=== PATIENT | female | born 1990 | race Caucasian/White ===

== ENCOUNTER 2022-01-01 08:25 | Inpatient (IN) | payer OTHER ==
[2022-01-01] MEDS ORDERED: DINOPROSTONE 10 MG VAGINAL SUPPOSITORY VG STA (09:16)
[2022-01-01 10:57] LABS: BASO % 0.3 % (0-2.0); EOS % 1.4 % (0-4.5); HEMATOCRIT 33.5 % (32.4-45.2); HEMOGLOBIN 11.3 GM/dL (10.7-15.3); LYMPH % 24.2 % (8-40); MCH 28.5 pg (25.7-33.7); MCHC 33.7 g/dl (32.0-36.0); MEAN CELL VOLUME 84.7 fl (80-96); MEAN PLT VOLUME 9.9 fl (7.5-11.1); MONO % 8.1 % (3.8-10.2); PLATELET COUNT 160 10^3/uL (134-434); RBC 3.96 M/mm3 (3.60-5.2); WHITE BLOOD COUNT 5.5 K/mm3 (4.0-10.0)
[2022-01-01 11:01] LABS: INR 0.85 (0.83-1.09); PROTHROMBIN TIME (PATIENT) 9.8 SEC (9.7-13.0)
[2022-01-01 11:04] LABS: ACTIVATED PTT 25.9 SECONDS (25.2-36.5)
[2022-01-01 11:25] LABS: CALCIUM 8.3 mg/dL (8.5-10.1)
[2022-01-01 11:26] LABS: BLOOD UREA NITROGEN 7.7 mg/dL (7-18)
[2022-01-01 11:29] LABS: CREATININE 0.3 mg/dL (0.55-1.3)
[2022-01-01 13:09] VITALS: BMI 35.9
[2022-01-01] MEDS ORDERED: OXYTOCIN 30 UNITS in 0.9% NS 30 UNIT/500 ML INFUS.BAG IVPB SCH (22:45)
[2022-01-02] MEDS ORDERED: LIDOCAINE HCL 1% PRESERVATIVE FREE - 30ML VIAL ONE (00:15)
[2022-01-02] MEDS ORDERED: OXYTOCIN 30 UNITS in 0.9% NS 30 UNIT/500 ML INFUS.BAG IVPB ONE (00:15)
[2022-01-02] MEDS ORDERED: OXYTOCIN 20 UNITS in 0.9% NS 20 UNIT/1,000 ML INFUS.BAG IV ONE (00:15)
[2022-01-02] MEDS: ELECTROLYTE-148 SOLN 1,000 ML IV SCH ×2 (00:33→09:15)
[2022-01-02] MEDS ORDERED: PROMETHAZINE HCL 25 MG/1 ML VIAL IVPB ONE (05:31)
[2022-01-02] MEDS ORDERED: BUTORPHANOL TARTRATE 1 MG/ML VIAL IVPB ONE (05:31)
[2022-01-02] MEDS ORDERED: BUTORPHANOL TARTRATE 2 MG/ML VIAL ONE (05:34)
[2022-01-02] MEDS ORDERED: oxyCODONE HCL 5 MG TABLET PO PRN (09:37)
[2022-01-02] MEDS ORDERED: IBUPROFEN 600 MG TABLET (FP) PO PRN (09:37)
[2022-01-02] MEDS ORDERED: BENZOCAINE 28 GM HEMORRHOIDAL OINTMENT TP PRN (09:37)
[2022-01-02] MEDS ORDERED: ACETAMINOPHEN 325 MG TABLET (FP) PO PRN (09:37)
[2022-01-02] MEDS ORDERED: BENZOCAINE 20% 57 GM BOTTLE TP PRN (09:37)
[2022-01-02] MEDS ORDERED: BISACODYL 10 MG SUPP.RECT RC PRN (09:37)
[2022-01-02] MEDS ORDERED: WITCH HAZEL 50% (TUCKS) 40 PAD/JAR PAD TP PRN (09:37)
[2022-01-02] MEDS ORDERED: METHYLERGONOVINE MALEATE 0.2 MG/1 ML AMP IM PRN (09:37)
[2022-01-02] MEDS ORDERED: OXYTOCIN 20 UNITS in 0.9% NS 20 UNIT/1,000 ML INFUS.BAG IV SCH (09:45)
[2022-01-02 10:00] LABS: CORD BASE EXCESS -2.6 mmol/L (0-2); CORD HCO3 25.5 mmHg (20-29); CORD PCO2 56.8 mmHg (30-78); CORD pH 7.27 (7.14-7.44)
[2022-01-02 10:02] LABS: CORD HCO3 23.5 mmHg (20-29); CORD PCO2 46.7 mmHg (30-78); CORD pH 7.32 (7.14-7.44)
[2022-01-03 09:51] LABS: BASO % 0.2 % (0-2.0); EOS % 0.6 % (0-4.5); HEMATOCRIT 33.5 % (32.4-45.2); HEMOGLOBIN 11.4 GM/dL (10.7-15.3); LYMPH % 17.3 % (8-40); MCH 29.1 pg (25.7-33.7); MCHC 34.1 g/dl (32.0-36.0); MEAN CELL VOLUME 85.5 fl (80-96); MEAN PLT VOLUME 10.3 fl (7.5-11.1); MONO % 6.5 % (3.8-10.2); NEUT % 75.4 % (42.8-82.8); PLATELET COUNT 149 10^3/uL (134-434); RBC 3.92 M/mm3 (3.60-5.2); RDW 14.3 % (11.6-15.6); WHITE BLOOD COUNT 9.3 K/mm3 (4.0-10.0)
[2022-01-03] MEDS ORDERED: DIPHTH,PERTUSS(ACELL),TET 0.5 ML DISP.SYRIN IM ONE (10:00)
[2022-01-03 20:57] VITALS: TEMP 98.2
[2022-01-03] MEDS ORDERED: SENNOSIDES/DOCUSATE COMBO (SENNA PLUS) TABLET (UD) PO PRN (22:00)
[2022-01-04 09:53] VITALS: BP 110/70; PULSE 83; RESP 17
== END 2022-01-04 13:00 | disposition home or self-care (01) | DRG 560 ==
LOC: JLDR 08:25 → J3W 01-02 11:40
PROVIDERS: ADMIT Obstetrics & Gynecology; ATTEND Obstetrics & Gynecology
PROC: 3E033VJ Introduction of Other Hormone into Peripheral Vein, Percutaneous Approach (ICD-10-PCS; 2022-01-01)
PROC: 3E0P7VZ Introduction of Hormone into Female Reproductive, Via Natural or Artificial Opening (ICD-10-PCS; 2022-01-01)
PROC: 0HQ9XZZ Repair Perineum Skin, External Approach (ICD-10-PCS; principal; 2022-01-02)
PROC: 10E0XZZ Delivery of Products of Conception, External Approach (ICD-10-PCS; 2022-01-02)
DX: O69.1XX0 Labor and delivery complicated by cord around neck, with compression, not applicable or unspecified (principal); O70.0 First degree perineal laceration during delivery; Z3A.40 40 weeks gestation of pregnancy; Z37.0 Single live birth
CPT/HCPCS: 36415; 36600; 59409; 71046-TC-FY; 80048; 82803; 85025; 85610; 85730; 86780; 86850; 86900; 86901; 90715; C9803-CS; U0003; U0005

== ENCOUNTER 2024-04-21 17:04 | Emergency (ER) | payer OTHER ==
[2024-04-21 17:19] VITALS: RESP 18; BMI 26.5
[2024-04-21] MEDS ORDERED: ACETAMINOPHEN INJECTION 100 ML ONE (18:37)
[2024-04-21] MEDS ORDERED: METOCLOPRAMIDE HCL INJECTION 10 MG/2 ML VIAL ONE (18:37)
[2024-04-21 18:48] LABS: BASO % 0.7 % (0-2.0); EOS % 1.9 % (0-4.5); HEMATOCRIT 40.8 % (32.4-45.2); HEMOGLOBIN 13.7 GM/dL (10.7-15.3); LYMPH % 26.2 % (8-40); MCHC 33.6 g/dl (32.0-36.0); MEAN CELL VOLUME 86.1 fl (80-96); MEAN PLT VOLUME 9.8 fl (7.5-11.1); MONO % 8.2 % (3.8-10.2); PLATELET COUNT 212 10^3/uL (134-434); RBC 4.74 M/mm3 (3.60-5.2); RDW 13.7 % (11.6-15.6); WHITE BLOOD COUNT 5.9 K/mm3 (4.0-10.0)
[2024-04-21] MEDS: METOCLOPRAMIDE HCL INJECTION 10 MG/2 ML VIAL IVPB ONE (18:48)
[2024-04-21] MEDS: ACETAMINOPHEN 1000 MG/100 ML BAG IVPB ONE (18:48)
[2024-04-21] MEDS: SODIUM CHLORIDE 0.9% 500 ML INFUS.BAG IV ONE (18:48)
[2024-04-21 19:03] LABS: ALBUMIN 3.7 g/dl (3.4-5.0); CALCIUM 9.1 mg/dL (8.5-10.1)
[2024-04-21 19:06] LABS: CREATININE 0.5 mg/dL (0.55-1.3)
[2024-04-21 19:08] LABS: BILIRUBIN,TOTAL 1.4 mg/dL (0.2-1); TOT PROT 7.2 g/dl (6.4-8.2)
[2024-04-21 21:51] VITALS: BP 107/64; PULSE 84; TEMP 98.7
== END 2024-04-21 23:32 | disposition home or self-care (01) ==
LOC: JER 17:04
PROC: 3E033NZ Introduction of Analgesics, Hypnotics, Sedatives into Peripheral Vein, Percutaneous Approach (ICD-10-PCS; principal; 2024-04-21)
PROC: 3E033GC Introduction of Other Therapeutic Substance into Peripheral Vein, Percutaneous Approach (ICD-10-PCS; 2024-04-21)
DX: R51.9 Headache, unspecified (principal)
CPT/HCPCS: 36415; 70450-TC; 71046-TC-FY; 80053; 83690; 84484; 85025; 93005; 93010; 99285-25; J0131